=== PATIENT | female | born 1945 | race Caucasian/White ===

== ENCOUNTER → 2017-02-28 | Outpatient (CLI) | payer MEDICARE, OTHER ==
[~2017-02-28] MED LIST: GLIP10TA95 PO; METF850T PO; TYL500 PO
--- NOTE | 2017-02-28 10:11 | RADRPT ---
PROCEDURE: US Abdomen. CLINICAL INDICATION: Chronic kidney disease. . TECHNIQUE: Multiple real-time longitudinal and transverse images were acquired of the patient's ab domen and retroperitoneum utilizing a curved array transducer. COMPARISON: None FINDINGS: The liver is homogeneous without focal mass or intrahepatic biliary dilatation. Normal flow was demo nstrated in the hepatic and portal veins. The common bile duct measures 8.8 mm in maximal dimension . The gallbladder has been removed. The visualized portions of the pancreas are unremarkable with o bscuration of the tail of the pancreas. The spleen is small in size. The right kidney measures 10.1 cm in length. The left kidney measures 10.0 cm in length. There is normal echogenicity within the kidneys without hydronephrosis, mass, or calculus. No free fluid is identified. IMPRESSION: 1. Status post cholecystectomy with physiologic ectasia of the common bile duct. 2. Small size of spleen. . RPTAT: QQ .Lance Dukes MD, Date Time Electronically viewed and signed by .Lance Dukes MD, on 02/28/2017 10:11 .L/
--- NOTE | 2017-02-28 10:17 | RADRPT ---
PROCEDURE: US bladder/Pelvis. CLINICAL INDICATION: Chronic kidney disease. Evaluate pain postvoid bladder. TECHNIQUE: Sonographic transabdominal evaluation of the bladder and pelvis was performed with curv ed array transabdominal transducer technique was utilized. Images were reviewed on the high-resoluti on PACS workstation. COMPARISON: No prior studies are available for comparison. FINDINGS: The bladder appears normal in size and shape without bladder wall mass or diverticulum. Pre void itzel dder has a volume of 108 cc. Postvoid bladder has a volume of 17 cc. Uterus and ovaries were not wel l visualized. No gross pelvic mass or free fluid is seen. IMPRESSION: Small postvoid residual of the bladder noted. Otherwise unremarkable. RPTAT: QQ .Lance Dukes MD, Date Time Electronically viewed and signed by .Lance Dukes MD, on 02/28/2017 10:17 .L/
== END | disposition home or self-care (01) ==
LOC: U/S 08:48
PROVIDERS: ATTEND Internal Medicine
DX: E11.9 Type 2 diabetes mellitus without complications (principal); N18.9 Chronic kidney disease, unspecified
CPT/HCPCS: 76700; 76856